=== PATIENT | male | born 1955 | race Hispanic/Latino ===

== ENCOUNTER 2017-07-17 02:43 | Emergency (ER) | payer BC, OTHER | END 2017-07-17 03:10 | disposition home or self-care (01) | LOC: EDH 02:43 | DX: Z02.83 Encounter for blood-alcohol and blood-drug test (principal); E11.9 Type 2 diabetes mellitus without complications; Z88.0 Allergy status to penicillin ==

== ENCOUNTER 2021-09-21 14:41 | Emergency (ER) | payer BC ==
[~2021-09-21] VITALS: Ht 170.2 cm; Wt 77.1 kg
[2021-09-21 14:45] VITALS: BP 149/61
== END 2021-09-21 15:30 | disposition left against medical advice (07) ==
LOC: EDH 14:41
DX: L03.116 Cellulitis of left lower limb (principal); Z53.21 Procedure and treatment not carried out due to patient leaving prior to being seen by health care provider

== ENCOUNTER → 2024-01-27 | Outpatient (CLI) | payer OTHER | END | disposition home or self-care (01) | LOC: RAH 08:15 | PROVIDERS: ATTEND Internal Medicine | DX: R74.8 Abnormal levels of other serum enzymes (principal) | CPT/HCPCS: 76700 ==

== ENCOUNTER → 2024-12-10 | Outpatient (CLI) | payer OTHER ==
--- NOTE | 2024-12-11 09:52 | HMCIMG ---
EXAMINATION: ULTRASOUND OF THE ABDOMEN WITH COLOR DOPPLER. CLINICAL HISTORY: Abnormal alkaline phosphatase. COMPARISON: Ultrasound of the abdomen dated 01/27/2024. TECHNIQUE: Real-time grayscale ultrasound images of the abdomen. In addition, color Doppler is medically necessary to perform in order to evaluate vascularity and blood flow. FINDINGS: Liver: Bulky in caliber, the right hepatic lobe measures 16.0 cm in the craniocaudal dimension. There is increased echogenicity of the hepatic parenchyma. There is no focal hepatic abnormality or intrahepatic biliary ductal dilatation. There is normal spectral Doppler of the main portal vein. Gallbladder: Within normal limits with normal wall thickness (0.22 cm). No hyperemia or pericholecystic free fluid. There is no cholelithiasis. Common bile duct is normal in caliber, measuring 0.35 cm. Spleen is normal in caliber and measures 9.4 x 4.2 x 3.3 cm in craniocaudal, AP, and transverse dimensions respectively. No focal lesions. Pancreas: Obscured by overlying bowel gas. The kidneys are normal in caliber, the right kidney measures 11.1 x 4.7 x 3.8 cm and the left kidney measures 11.0 x 4.4 x 4.3 cm in craniocaudal, AP, and transverse dimensions respectively. There is normal renal cortical thickness, and cortical echogenicity. There is no renal calculus or hydronephrosis. Visualized aspects of the abdominal aorta and inferior vena cava are unremarkable. IMPRESSION: Hepatomegaly with hepatic steatosis. /[place]
== END | disposition home or self-care (01) ==
LOC: RAH 08:06
PROVIDERS: ATTEND Internal Medicine
DX: K76.0 Fatty (change of) liver, not elsewhere classified (principal); R74.8 Abnormal levels of other serum enzymes; R16.0 Hepatomegaly, not elsewhere classified
CPT/HCPCS: 76700

== ENCOUNTER → 2025-02-19 | Outpatient (CLI) | payer OTHER ==
--- NOTE | 2025-02-20 07:26 | HMCSR ---
APPROVED REPORT EXAM: Two-dimensional and M-mode echocardiogram with Doppler and color Doppler. INDICATION ICD: I35.0 Aortic valve disorders 2D Dimensions RVDd4.3 cmLVEF(%)60.7 (>50%)LVED Vol(simp.)65.0 mL IVSd0.9 (0.7-1.1cm)FS(%)32 %LVES Vol(simp.)32.0 mL LVDd4.6 (3.8-5.6cm)LA (2D)4.0 (1.6-4.0cm)LVEF(%, simp.)51 % PWd0.8 (0.7-1.1cm)Ao Root(2D)3.0 (2.0-3.7cm)LA ESV INDEX (BP)32.53 mL/m2 IVSs1.1 cmLVOT diam2.0 (1.8-2.4cm) LVDs3.1 (2.5-4.0cm)IVC diam1.6 cm PWs1.5 cm M-Mode Dimensions EPSS1.1 cm LA (MM)4.0 (1.6-4.0cm) Ao Root(MM)3.0 (2.0-3.7cm) Aortic Valve AoV Vmax4.9 m/Nathalie Peak GR97.8 mmHgLVOT Vmax0.7 m/s AoV VTI1.1 mAo Mean GR56.1 mmHgLVOT VTI0.17 m BISHOP (VMAX)0.45 cm2AVA (VTI) 0.5 cm2 Mitral Valve MV E Qoej837.1 cm/sDECEL Ofah601 ms MV A Vmax20.9 cm/sP 1/2 T50 ms E/A ratio5.6MVA (PHT)4.4 cm2 TDI E/E' Qsgadh10.2E/E' Wzpqhrj06.9 Medial E' Peak V3.04 cm/sLateral E' Peak V5.08 cm/s Pulmonary Valve PV Vmax0.8 m/sPV VTI0.18 mPV Mean GR1.5 mmHg PV Peak GR2.4 mmHg Tricuspid Valve TR Vmax3.2 m/sRAP (EST) 3 hcUlYHEB61.3 mmHg TR Peak GR49.3 mmHg Left Ventricle The left ventricle is normal size. There is normal LV segmental wall motion. There is normal left adela tricular wall thickness. LVEF is 55-60%. Restrictive diastolic failure. Right Ventricle The right ventricle is mildly to moderately dilated. The right ventricular systolic function is nadia l. Atria The left atrium size is normal. The right atrium size is normal. Aortic Valve Aortic valve is trileaflet, thickened and mildly calcified with restricted opening; only the noncoron kishan leaflet moves. No aortic regurgitation is present. There is severe aortic valvular stenosis. Peak k gradient is 98mmHg. mean gradient 53mmHg, AoV area 0.5cm2 Mitral Valve The mitral valve is normal in structure. There is trace of mitral valve regurgitation noted. There is no mitral valve stenosis. Tricuspid Valve The tricuspid valve is normal in structure. There is trace of tricuspid valve regurgitation noted. Pulmonic Valve The pulmonary valve is normal in structure. There is no pulmonic valvular regurgitation. Great Vessels The aortic root is normal in size. The IVC is normal in size and collapses >50% with inspiration. Pericardium There is no pericardial effusion. Other Information Quality : Adequate Conclusion There is severe aortic valvular stenosis. Peakk gradient is 98mmHg. mean gradient 53mmHg, AoV area 0. 5cm2 LVEF is 55-60%. Restrictive diastolic failure. High mean LV filling pressure.
== END | disposition home or self-care (01) ==
LOC: RAH 13:40
PROVIDERS: ATTEND Internal Medicine
DX: I35.0 Nonrheumatic aortic (valve) stenosis (principal)
CPT/HCPCS: 93306